=== PATIENT | male | born 1970 | race Caucasian/White ===

== ENCOUNTER 2019-01-21 10:47 | Outpatient (CLI) | payer BC, SELFPAY ==
--- NOTE | 2019-01-21 09:27 | DI.RAD_ITS ---
SYMPTOM/DIAGNOSIS: LT KNEE PAIN LEFT KNEE: Four views were obtained. There is a tiny calcific or ossific density adjacent to the lateral aspect of the patella. Minimal enthesophyte formation noted at the quadriceps attachment. No other bony or soft tissue abnormality is seen.
== END 2019-01-21 11:07 ==
PROVIDERS: PCP Family Medicine; Visit Provider Student in an Organized Health Care Education/Training Program
DX: M25.562 Pain in left knee (principal); M76.892 Other specified enthesopathies of left lower limb, excluding foot
CPT/HCPCS: 73564

== ENCOUNTER 2019-02-04 07:41 | Outpatient (CLI) | payer BC, SELFPAY ==
--- NOTE | 2019-02-04 15:39 | DI.MRI_ITS ---
EXAM: MR LOWER JOINT LT WO CLINICAL HISTORY: LT KNEE PAIN. TECHNIQUE: Multiplanar multisequence MRI was performed. COMPARISON: No exams were available for comparison FINDINGS: There is a small knee joint effusion. No significant bony signal abnormality seen. Articular cartil age appears intact as visualized. Extensor mechanism appears intact. No cruciate ligament tear seen . No significant collateral ligament injury seen. Lateral meniscus appears normal. Medial meniscus shows a complex nondisplaced tear of the body and posterior horn. IMPRESSION: Conclusion complex nondisplaced medial meniscal tear involving body and posterior horn. No additiona l significant findings
== END 2019-02-04 08:01 ==
PROVIDERS: PCP Family Medicine; Visit Provider Student in an Organized Health Care Education/Training Program
DX: M25.562 Pain in left knee (principal); M25.462 Effusion, left knee; S83.242A Other tear of medial meniscus, current injury, left knee, initial encounter
CPT/HCPCS: 73721

== ENCOUNTER 2019-04-13 09:55 | Day surgery (SDC) | payer BC, SELFPAY ==
[2019-04-13] VITALS (8 sets, daily range): BP systolic 98–133; BP diastolic 76–89; PULSE 64–79; RESP 11–18; TEMP 36–36.6; O2SAT 97–100
--- NOTE | 2019-04-13 09:44 | W.PREOPHP ---
Assessment and Plan Assessment and plan (1) Tear of medial meniscus of left knee: Status: Acute Assessment and plan: Plan: Educated patient on surgery covering surgical technique, recovery process, benefits and risks including but not limited to risk of infection, blood clot, damage to soft tissue/blood vessels/nerves in detail. After discussion patient gives verbal understanding of risks and elects to proceed with scheduling surgery. Patient had opportunity to have questions answered to their satisfaction. They will contact office if issues arise. Patient will continue to be scheduled for left knee arthroscopy with likely partial medial meniscectomy with Dr. Lemon. Qualifiers: Encounter type: subsequent encounter Meniscus tear of knee type: complex Tear current or old: current Qualified Code(s): S83.232D - Complex tear of medial meniscus, current injury, left knee, subsequent encounter History of Present Illness Narrative: Mr. Arzate is a 48-year-old male who presents for scheduled left knee arthroscopy with partial medial vasectomy by Dr. Lemon. Reports approximately 6-month history of left knee pain that initially developed on the lateral aspect but has since become more diffuse. Pain developed following a run but denies any specific trauma. Due to patient's discomfort he has had to give up activity including light running and jogging. Patient was previously been seen orthopedic clinic in January 2019 at which time he had an MRI ordered which as per Dr. Bridges's read on 02/04/2019 revealed a complex nondisplaced medial meniscal tear involving body and posterior horn. Due to patient's continued discomfort and MRI findings of meniscal tear he was offered surgical intervention and elected to proceed. Review of Systems Cardiovascular Cardiovascular: Denies chest pain, Denies chest pain at rest, Denies rapid heart rate, Denies irregular heart rhythm, Denies palpitations, Denies dyspnea, Reports dyspnea on exertion (reports a episode of DANIELLE when hiking a steep trail in [place];denies other DANIELLE) and Denies slow heart rate Respiratory Respiratory: Denies cough, Denies dyspnea, Reports dyspnea on exertion (reports a episode of DANIELLE when hiking a steep trail in [place];denies other DANIELLE) and Denies wheezing Endocrine Endocrine: Denies palpitations Allergic/Immunologic Allergic/Immunologic: Denies wheezing [facility] Medical History (Updated 04/13/19 @ 10:11 by Clarke Catalan) Hx of migraine with aura (Acute) Surgical History History of arthroscopic knee surgery (Chronic) 2010 (RIGHT KNEE) Social History Smoking/Tobacco Use Status: Never Alcohol Intake: current Alcohol Intake frequency: 0-2 drinks per day Drug use: Socially Substance use type: marijuana Details: ONCE EVERY 3-4 MONTHS Do you feel safe at home: Yes Do you feel safe in your relationship?: Yes Meds Home Medications and Allergies Home Medications Medication Instructions Recorded Confirmed Type caxqwsz-pzngqzninkzvn-lykexflz 1 tab 04/13/19 History [Excedrin Migraine] ibuprofen 400 mg PO PRN PRN 04/13/19 04/13/19 History Allergies Allergy/AdvReac Type Severity Reaction Status Date / Time No Known Drug Allergies Allergy Verified 04/13/19 10:21 Exam Const General: cooperative, healthy appearing and no acute distress Resp Effort & Inspection: normal respiratory effort and able to speak in complete sentences Auscultation: clear to auscultation bilaterally, no crackles, no rales and no rhonchi Cardio Heart Sounds: S1 normal, S2 normal and no murmurs
[2019-04-13] MEDS: Lactated Ringers 1,000 ML 80 ML IV (10:39)
[2019-04-13] MEDS: ceFAZolin 2 GM/50 ML BAG IVPB (11:02)
--- NOTE | 2019-04-13 11:07 | PDOC.DSDIS_ITS ---
Discharge Plan Disposition Patient Disposition: HOME Condition: Good Discharge Details Reason For Visit: Left knee medial meniscus tear Attending Provider: Michele Lemon Primary Care Provider: Getachew Ochoa I Home Meds and New Rx's Prescriptions: New acetaminophen 500 mg tablet 500 mg PO Q6H PRN (Reason: pain) Qty: 60 RF: 2 ibuprofen 600 mg tablet 600 mg PO TID PRN (Reason: pain) Qty: 60 RF: 2 oxycodone 5 mg tablet 5 mg PO Q6H PRN (Reason: severe post-operative pain) Qty: 8 RF: 0 Continued ibuprofen 400 mg Tablet 400 mg PO PRN PRNRF: 0 Excedrin Migraine 250-250-65 mg Tablet 1 tab RF: 0 Discharge Instructions Stand Alone Forms: [facility]ochilt Knee Arthroscopy Referrals: Michele Lemon MD [ [facility] STAFF PHYSICIAN] - Equipment/Supplies: Partial Weight Bearing Crutches Activity:: Activity as Tolerated Remove Dressings/Wound Care:: 72 hours Shower/Bathe:: 72 hours Discharge Orders Discharge Orders: Discharge Order (Routine); Ordered 04/13/19 Ordered By: Elvie Vega DS: Diagnosis Discharge Diagnosis (1) Tear of medial meniscus of left knee: Status: Acute
[2019-04-13] MEDS: Bupivacaine 0.5% Pres-Free 30 ML VIAL (11:30)
--- NOTE | 2019-04-13 16:49 | W.PM.OP ---
Date of service: 04/13/19 Time of Service: 12:50 Operative Note Operative Note DATE OF PROCEDURE: 04/13/19 PRE-OP DIAGNOSIS: Left medial meniscal tear POST-OP DIAGNOSIS: other (Left medial meniscal tear, left medial plica syndrome) PROCEDURE: Arthroscopic left knee partial medial meniscectomy, medial plica excision SURGEON: Michele Lemon ANESTHESIA: GETA ESTIMATED BLOOD LOSS: 0 PATHOLOGY: none sent COMPLICATIONS: None Patient was transported to: PACU Patient's condition: stable Indications: I have seen Pranav in clinic for symptoms of a meniscus tear. This was confirmed based on MRI and exam findings. Nonoperative measures were exhausted but disability and pain persisted. I discussed knee arthroscopy with meniscal intervention with the patient. I reviewed the risks of the procedure to include, but not limited to, bleeding, infection, pain, stiffness, damage to nerves or vessels, recurrence, blood clot. Despite these risks, the patient elected to proceed. Findings: A diagnostic arthroscopy was performed with the following findings: Suprapatellar Pouch: No significant inflammation, no loose bodies Medial Compartment: Complex medial meniscal tear primarily involving the posterior horn and body with no extension into the root, intact meniscal root, no significant chondromalacia or signs of arthritis, no loose bodies, taut medial plica Notch: ACL and PCL were intact with some inflammatory change Lateral Compartment: No meniscal tear, intact meniscal root, no significant chondromalacia or signs of arthritis, no loose bodies Patellofemoral Compartment: No significant chondromalacia, no apparent patellar maltracking Procedure Description: Pranav was greeted in the preoperative holding area where the correct side was identified and marked. The consent was reviewed with the patient and signed. The history and physical was updated. All questions were answered. Pranav was taken back to the operating room. The patient was placed into the supine position on the operating room table. A nonsterile tourniquet was placed high onto the leg but not used. All bony prominences were well padded. Prophylactic antibiotics in the form of cefazolin were administered. The left leg was then prepped with Chloraprep and draped in a standard fashion with stockinette and extremity drape. A timeout to confirm correct identity, side and site, procedure, allergies, anesthesia, and medical concerns was performed. The leg was placed into a pneumatic leg diaz, SPIDER2. A standard lateral portal was made at the lateral border of the patella tendon in line with the inferior pole of the patella, soft spot. The skin and deep tissue was incised sharply and the blunt trochar was inserted atraumatically. A diagnostic arthroscopy was performed and the findings are listed above. The suprapatellar pouch had no significant inflammatory change. The patellofemoral articulation showed no articular damage as well as good tracking. The lateral gutter had no loose bodies and the medial gutter had no loose bodies. There was a very notable medial plica which was very taut and articulated with the medial aspect of the distal femur. The knee was brought into some valgus stress in extension to open the medial compartment. A medial portal was made, localized by a spinal needle. The portal was created with an #11 blade through skin and capsule under direct visualization avoiding any meniscal injury. A probe was then inserted into the medial compartment. The medial compartment was fully inspected. The chondral surface of the tibia showed no significant chondromalacia and the surface of the femur showed no significant chondromalacia. The medial meniscus had a complex tear involving the posterior horn and body. There is both a radial and a horizontal component which did not go all the way into the periphery. After evaluation, the meniscus was debrided down to a stable base using a series of biters and arthroscopic javier. It was probed afterwards to confirm that the tear had been removed and the meniscus was stable. The notch was then inspected which showed an intact ACL and an intact PCL. The leg was then brought into a figure of 4 position. The lateral compartment was fully inspected with the arthroscope and a probe. The chondral surface of the lateral femur showed no significant chondromalacia. The chondral surface of the lateral tibia showed no significant chondromalacia. The lateral meniscus had no meniscal tear. The arthroscope was brought back into the suprapatellar pouch and the leg was in full extension. The medial plica was excised using the shaver until there was no notable pressure against the medial femur. The knee was thoroughly irrigated with the arthroscopic fluid on high flow and pressure. Inflow was stopped and excess fluid was removed. The wounds were closed with 4-0 Nylon. They were dressed with Xeroform, 4x4 gauze, ABD pad, Kerlix and an MYKE wrap. A cryo-cuff was applied. The patient tolerated the procedure well and was returned to the Same Day Surgery area in a stable condition suffering no known complication.
== END 2019-04-13 14:00 | disposition home or self-care (01) ==
PROVIDERS: PCP Family Medicine; Visit Provider Student in an Organized Health Care Education/Training Program
PROC: (CPT 29870; principal; 2019-04-13 11:45)
DX: S83.232A Complex tear of medial meniscus, current injury, left knee, initial encounter (principal); X50.9XXA Other and unspecified overexertion or strenuous movements or postures, initial encounter; M67.52 Plica syndrome, left knee
CPT/HCPCS: 29881; NC; J0690; J1100; J1885; J2250; J2405

== ENCOUNTER 2022-02-19 11:42 | Emergency (ER) | payer BC, SELFPAY ==
--- NOTE | 2022-02-19 11:45 | RT.EKG_ITS ---
APPROVED REPORT Exam: Resting ECG Reason for Exam: chest pain Patient Location: E HR:73 bpm ECG Measurements Heart Rate 73 AXIS SC 170 P 79 QRSd 98 QRS 73 QT 354 T 57 QTc 391 Conclusion Sinus rhythm...normal P axis, V-rate 60- 99
[2022-02-19 11:47] VITALS: BP 152/117; PULSE 67; RESP 18; TEMP 36.6; O2SAT 100
[2022-02-19 12:59] LABS: ALT 38 U/L (16-63); AST 21 U/L (15-37); Albumin 4.4 g/dL (3.4-5.0); Alkaline Phosphatase 77 U/L (46-116); Anion Gap 6.5 mmol/L (3-11); BUN 18 mg/dL (7-18); Bilirubin, Total 0.7 mg/dL (0.2-1.0); CO2 30.5 mmol/L (21.0-32.0); CREATININE 1.1 mg/dL (0.70-1.30); Chloride 104 mmol/L (98-107); Estimated GFR 81.78 (mL/min/1.73m2); Glucose 94 mg/dL (74-106); Lipase 140 U/L (73-393); Potassium 4.1 mmol/L (3.5-5.1); Sodium 141 mmol/L (136-145); Total Protein 7.9 g/dL (6.4-8.2); Troponin I < 50 ng/L (<or=60)
[2022-02-19 13:00] LABS: Abs Immature Grans 0.01 10^3/uL (0.0-0.06); Absolute Basophil Count 0.04 10^3/uL (0.0-0.2); Absolute Eosinophil Count 0.07 10^3/uL (0.0-0.7); Absolute Lymphocyte Count 1.61 10^3/uL (1.2-3.4); Absolute Monocyte Count 0.41 10^3/uL (0.1-0.8); Absolute Neutrophil Count 3.04 10^3/uL (1.2-6.7); Basophils % 0.8; Eosinophils % 1.4; HCT 47.1 % (40.0-50.0); HGB 15.4 g/dL (13.5-17.5); Immature Grans % 0.2; Lymphocytes % 31.1; MCHC 32.7 % (32.0-36.0); MCV 86 fL (80-95); MPV 10.2 fL (8.0-11.0); Monocytes % 7.9; Neutrophils % 58.6; Platelet Count 225 10^3/uL (130-400); RDW 12.5 % (11.8-14.1); RDW-SD 39.1 fL; WBC 5.18 10^3/uL (4.4-10.8)
--- NOTE | 2022-02-19 13:09 | ED.GENADUL_ITS ---
Discharge Plan Disposition Patient Disposition: AGAINST MEDICAL ADVICE Condition: Stable Discharge Details Clinical Impression: Chest pain Primary Care Provider: Getachew Ochoa I ED Provider: Idalmis Mdeel Home Meds and New Rx's Prescriptions: Continued ibuprofen 400 mg Tablet 400 mg PO PRN PRN Excedrin Migraine 250-250-65 mg Tablet 1 tab acetaminophen 500 mg tablet 500 mg PO Q6H PRN (Reason: pain) Qty: 60 2RF ibuprofen 600 mg tablet 600 mg PO TID PRN (Reason: pain) Qty: 60 2RF Discharge Instructions Instructions: Chest Pain (ED) Additional Instructions: Please follow-up with your primary care physician, you have declined any additional testing at this time including a repeat heart enzyme level and x-ray of your chest I do recommend stress test in the outpatient setting the discretion of your provider Limit any activities that reproduce your symptoms is much as possible Please return earlier should you have new, worsening, or persistent symptoms Referrals: Getachew Ochoa MD [Primary Care Provider] - Discharge Data Discharge Date/Time-TO BE ENTERED AT DEPARTURE: 02/19/22 13:49 Medical Decision Making Patient has a negative initial troponin, dimer, and EKG does not show acute abnormality She was made aware that we would like to repeat his troponin and EKG, he has declined, fully alert, oriented, of decisional capacity and will follow up closely with his primary care physician He has what appears to be lateral epicondylitis, he is encouraged to follow-up with his doctor regarding this as well and ibuprofen and rest this arm Patient is discharged home in stable condition with stable vital discussed possible outpatient stress test at the discretion of his doctor Medical Records Medical records reviewed: Yes I reviewed the patient's medical records. Lab Data Lab results reviewed: Yes I reviewed the patient's lab results. HPI General Date/Time Provider Initiated Documentation: 02/19/22 12:07 . HPI Narrative: This 51-year-old male presents with chest pain which awoke him from sleep at approximately 2 AM. He states he has been having some what he believes to be anxiety when he lays down to sleep after thinking about the day. He denies any associated shortness of breath. He has an intermittent lightheadedness. He denies any nausea, diaphoresis, sweating. He denies early family history of coronary artery disease. He denies tobacco use, hypertension, or hyperlipidemia. He denies exertional symptoms. He states he actually hikes every other day and feels well during this. He denies any calf pain or swelling, recent flights, surgeries, long drives, or history of coagulopathy. He also reports some left lateral arm pain and reported weakness secondary to pain. He has been playing baseball more frequently as of late. He states the pain is exacerbated with movement of his elbow. States this has been going on for the past several days. He denies any neck pain, abdominal pain, or lower extremity pain or swelling. Related Data Home Medications Medication Instructions Recorded Confirmed acetaminophen 500 mg tablet 500 mg PO Q6H PRN pain #60 tabs 04/13/19 02/19/22 einbauz-ggargenvluvms-iuveucre 250 1 tab 04/13/19 04/29/19 mg-250 mg-65 mg tablet (Excedrin Migraine) ibuprofen 400 mg tablet 400 mg PO PRN PRN 04/13/19 02/19/22 ibuprofen 600 mg tablet 600 mg PO TID PRN pain #60 tabs 04/13/19 02/19/22 Previous Rx's Medication Instructions Recorded acetaminophen 500 mg tablet 500 mg PO Q6H PRN pain #60 tabs 04/13/19 ibuprofen 600 mg tablet 600 mg PO TID PRN pain #60 tabs 04/13/19 Allergies Allergy/AdvReac Type Severity Reaction Status Date / Time No Known Drug Allergies Allergy Verified 02/19/22 11:54 General Stated Complaint: Chest Pain REGGIE: 3 Review of Systems All systems reviewed & are unremarkable except as noted in HPI and below PFSH All Active Problems (Updated 02/19/22 @ 13:47 by ANKUR Pineda) Chest pain (Acute) Injury of superior glenoid labrum of right shoulder (Acute 04/19/16) Internal derangement of left knee (Acute) Tear of medial meniscus of left knee (Acute) Medical History (Updated 02/19/22 @ 13:47 by ANKUR Pineda) Hx of migraine with aura Surgical History History of arthroscopic knee surgery 2010 (RIGHT KNEE) Social History Smoking/Tobacco Use Status: Never Smoking risk assessment performed?: Yes Alcohol Intake: current Alcohol Intake frequency: 0-2 drinks per day Drug use: Socially Substance use type: marijuana Details: ONCE EVERY 3-4 MONTHS Do you feel safe at home: Yes Do you feel safe in your relationship?: Yes Exam Const General: cooperative, comfortable and no acute distress Eyes Sclera: sclerae normal Resp Effort & Inspection: normal respiratory effort Auscultation: clear to auscultation bilaterally Cardio Rate: regular rate Rhythm: regular rhythm Heart Sounds: no murmurs GI Inspection: normal to inspection Skin General skin exam: no rashes or lesions noted Other: distal pulses intact Neuro General: patient alert and patient oriented x3 Extrem Other: no calf swelling or tenderness Course Vital Signs Vital signs: Vital Signs Temperature 36.6 C 02/19/22 11:47 Pulse 67 02/19/22 11:47 Respiratory Rate 18 02/19/22 11:47 Blood Pressure 152/117 H 02/19/22 11:47 Pulse Oximetry 100 02/19/22 11:47 Temperature 36.6 C 02/19/22 11:47 Temperature Source Temporal Artery Scan 02/19/22 11:47 Pulse 67 02/19/22 11:47 Respiratory Rate 18 02/19/22 11:47 Respiratory Effort Non-Labored 02/19/22 11:56 Blood Pressure 152/117 H 02/19/22 11:47 Blood Pressure Position Sitting 02/19/22 11:47 Pulse Oximetry 100 02/19/22 11:47 Oxygen Delivery Method Room Air 02/19/22 11:47 Oxygen Flow Rate 0 02/19/22 11:47 Lab/Test Results Lab/Test Results: Laboratory Tests Range/Units 02/19/22 02/19/22 12:29 12:29 WBC (4.4-10.8) 10^3/uL 5.18 RBC (4.36-5.78) 10^6/uL 5.50 Hgb (13.5-17.5) g/dL 15.4 Hct (40.0-50.0) % 47.1 MCV (80-95) fL 86 MCH (27.0-33.0) pg 28.0 MCHC (32.0-36.0) % 32.7 RDW (11.8-14.1) % 12.5 Plt Count (130-400) 10^3/uL 225 MPV (8.0-11.0) fL 10.2 Immature Gran % 0.2 Neutrophils % 58.6 Lymphocytes % 31.1 Monocytes % 7.9 Eosinophils % 1.4 Basophils % 0.8 Nucleated RBC % (0.0-0.3) % 0.0 Absolute Neutrophils (1.2-6.7) 10^3/uL 3.04 Absolute Lymphocytes (1.2-3.4) 10^3/uL 1.61 Absolute Monocytes (0.1-0.8) 10^3/uL 0.41 Absolute Eosinophils (0.0-0.7) 10^3/uL 0.07 Absolute Basophils (0.0-0.2) 10^3/uL 0.04 Sodium (136-145) mmol/L 141 Potassium (3.5-5.1) mmol/L 4.1 Chloride (98-107) mmol/L 104 Carbon Dioxide (21.0-32.0) mmol/L 30.5 Anion Gap (3-11) mmol/L 6.5 BUN (7-18) mg/dL 18 Creatinine (0.70-1.30) mg/dL 1.1 Est GFR (CKD-EPI 2020) (mL/min/1.73m2) 81.78 Glucose (74-106) mg/dL 94 Calcium (8.5-10.1) mg/dL 9.0 Total Bilirubin (0.2-1.0) mg/dL 0.7 AST (15-37) U/L 21 ALT (16-63) U/L 38 Alkaline Phosphatase (46-116) U/L 77 Troponin I (<or=60) ng/L < 50 Total Protein (6.4-8.2) g/dL 7.9 Albumin (3.4-5.0) g/dL 4.4 Lipase (73-393) U/L 140 PAWSS Have you Been Recently Intoxicated or Drunk Within the Last 30 days?: No Have you Ever Experienced Previous Episodes of Alcohol Withdrawal?: No Have you ever Experienced Withdrawal Seizures?: No Have you ever Experienced Delirium Tremens(DT)s?: No Have you ever undergone Alcohol Rehabilitation Treatment (i.e, inpt ot outpatient treatment programs)?: No Have you ever Experienced Blackouts?: No Have you ever Combined Alcohol with other Downers within the last 90 days?: No Have you ever Combined Alcohol with any other Substance of Abuse during the last 90 days?: No Positive Blood Alcohol level on Presentation? [PCS.BAL]: No Evidence of Increased Autonomic Activity (i.e. HR>120, tremor, sweating, agitation, nausea)?: No Result: 0
[2022-02-19 13:19] LABS: D-Dimer 233 ng/mlFEU (<500)
[2022-02-19 13:49] VITALS: RESP 18
== END 2022-02-19 13:49 | disposition left against medical advice (07) ==
PROVIDERS: Emergency Provider Physician Assistant; PCP Family Medicine
DX: R07.9 Chest pain, unspecified (principal); Z53.29 Procedure and treatment not carried out because of patient's decision for other reasons; Z79.82 Long term (current) use of aspirin
CPT/HCPCS: 36415; 80053; 83690; 93005; 99283; 84484; 85025; 85379; 93010

== ENCOUNTER 2022-10-25 00:37 | Outpatient (CLI) | payer BC, SELFPAY ==
--- NOTE | 2022-10-25 07:45 | DI.MRI_ITS ---
Exam(s) MR IAC BRAIN WO/W EXAM: MR IAC BRAIN WO/W CLINICAL HISTORY: right hearing loss SN,n90.5 TECHNIQUE: Multiplanar multisequence MRI of the brain was performed. Both noninfused and contrast i nfused sequences were performed. IV Contrast injected was 18 cc Dotarem. COMPARISON: No exams were available for comparison FINDINGS: CEREBRAL PARENCHYMA: No evidence of intracranial hemorrhage, mass effect nor shift of midline structu re. No extraaxial fluid collections. Ventricles are not enlarged nor shifted. There is no significant focal signal abnormality in the cerebellar hemispheres nor within the anita, m idbrain, and thalami. There is no abnormal signal abnormality in the periventricular white matter. DWI: No areas of restricted diffusion to suggest acute ischemic event. SWI: No microhemorrhages evident. There are no ring enhancing lesions in the brain. There is no abnormal meningeal enhancement. INTERNAL AUDITORY CANALS: No evidence of mass in the cerebellopontine angles and no evidence of intra canalicular acoustic neuroma. The 7th and 8th cranial nerves appear unremarkable within the interna l auditory canals bilaterally. PITUITARY GLAND: No mass nor parasellar abnormality. No obvious abnormality in the cavernous sinuses. FLOW VOIDS: The expected flow void are noted. No evidence of obvious aneurysm nor obvious vascular ma lformation. The skull base the left vertebral artery is dominant PARANASAL SINUSES: The visualized paranasal sinuses appear unremarkable. ORBITS: No obvious abnormal findings. IMPRESSION: 1. No significant intracranial findings on this MRI scan of the brain. 2. No abnormal enhancing intracranial findings. There are no ring enhancing lesions in the brain and there is no abnormal meningeal enhancement. 3. No evidence of acoustic neuroma-schwannoma nor other significant findings in the region of the in ternal auditory canals. DATA REPOSITORY:
[2022-10-25 12:28] LABS: CREATININE 1.2 mg/dL (0.70-1.30); Estimated GFR 73.22 (mL/min/1.73m2)
[2022-10-25] MEDS: Gadoterate meglumine 20 ML VIAL 17 ML IVP (12:37)
== END 2022-10-25 00:57 ==
LOC: DI 00:38
PROVIDERS: PCP Nurse Practitioner; Visit Provider Otolaryngology
DX: H90.5 Unspecified sensorineural hearing loss (principal)
CPT/HCPCS: 70553; 82565

== ENCOUNTER 2023-02-26 09:58 | Day surgery (SDC) | payer BC, SELFPAY ==
[2023-02-26 10:11] VITALS: BP 133/95; PULSE 83; RESP 20; TEMP 36.5; O2SAT 97
[2023-02-26] MEDS: Lactated Ringers 1,000 ML 80 ML IV (10:24)
--- NOTE | 2023-02-26 11:38 | W.ANESPRE ---
General Info Date of Service Date Performed: 02/26/23 Height: 5 ft 11 in Weight: 83 kg Body Mass Index (BMI): 25.4 Surgical Procedure: Operation Date: 02/26/23 11:20 Proposed Procedure Side Surgeon federico Howard MD Meds Allergies and Home Medications Allergies Allergy/AdvReac Type Severity Reaction Status Date / Time No Known Drug Allergies Allergy Verified 02/26/23 10:18 Home Medication Medication Instructions Recorded acetaminophen 500 mg tablet 500 mg PO Q6H PRN pain #60 tabs 04/13/19 slfkcue-pzqjcdhmbmarp-srghnfxl 250 1 tab PO DIRECTED 04/13/19 mg-250 mg-65 mg tablet (Excedrin Migraine) ibuprofen 400 mg tablet 400 mg PO PRN PRN 04/13/19 ibuprofen 600 mg tablet 600 mg PO TID PRN pain #60 tabs 04/13/19 sumatriptan succinate 100 mg tablet See Rx Instructions PO .COMPLEX 07/30/22 bisacodyl 5 mg tablet,delayed 5 mg PO ONCE #4 tabs 02/10/23 release (Dulcolax (bisacodyl)) polyethylene glycol 3350 17 17 g PO ONCE #238 grams 02/10/23 gram/dose oral powder Current Visit Medications: Current Medications Generic Name Dose Route Start Last Admin Trade Name Freq PRN Reason Stop Dose Admin Ringer's Solution 1,000 mls @ 80 mls/hr 02/26/23 06:00 02/26/23 10:24 IV 03/27/23 23:59 80 mls/hr INFUSION NOEL Administration IV Miscellaneous Supplies 1 each 02/26/23 06:00 Iv Access IV 03/27/23 23:59 DIRECTED NOEL Sodium Chloride 0 ml 02/26/23 06:00 Normal Saline Flush 10 Ml Syr IV 03/27/23 23:59 PRN PRN Sodium Chloride 0 ml 02/26/23 06:00 Normal Saline 10 Ml Vial IJ 03/27/23 23:59 DIRECTED PRN Sterile Water 0 ml 02/26/23 06:00 Water,Injection,Sterile 10 Ml Vial IJ 03/27/23 23:59 DIRECTED PRN PFSH Active Problems Active Problems: Problem Status Onset Code Right-sided sensorineural hearing loss H90.5 Hematochezia K92.1 Scrotal pain N50.82 Epididymitis N45.1 Elevated blood pressure reading without diagnosis of hypertension R03.0 Hearing loss in right ear H91.91 Cervical radiculopathy M54.12 Screening for colon cancer Z12.11 Injury of superior glenoid labrum of right shoulder 04/19/16 S43.431A Internal derangement of left knee M23.92 Tear of medial meniscus of left knee S83.242A Medical History Medical History Hx of migraine with aura Surgical History Surgical History S/p bilateral myringotomy with tube placement History of arthroscopic knee surgery 2010 (RIGHT KNEE) Tobacco Smoking/Tobacco Use Status: Never Alcohol Alcohol Intake: current Alcohol intake frequency: 0-2 drinks per day Substance Use Substance use: Socially Substance use type: marijuana Details: 2 weeks ago pt. had gummies Vital Signs and Lab Results Vital Signs Most Recent Vital Signs in EMR: Most Recent Vital Signs Temp Pulse Resp BP Pulse Ox 36.5 C 83 20 133/95 H 97 02/26/23 10:11 02/26/23 10:11 02/26/23 10:11 02/26/23 10:11 02/26/23 10:11 Lab Results Blood Type / Crossmatch: No Data to Display Complete Blood Count: No Data to Display Complete Metabolic Panel: No Data to Display Liver Function Panel: No Data to Display Coagulation Panel: No Data to Display Cardiac Panel: No Data to Display Arterial Blood Gas: No Data to Display Venous Blood Gas: No Data to Display Pancreas Panel: No Data to Display Thyroid Panel: No Data to Display Infectious Disease: No Data to Display Blood Cultures: No Data to Display Toxicology Panel: No Data to Display Imaging and Studies Imaging and Studies Study information below may be from another EMR and interpreted by another provider. Please see original notes in EMR for more complete details. EKG Summary: Conclusion Sinus rhythm...normal P axis, V-rate 60- 99 02/19/22 Anesthesia Assessment and Plan Anesthesia History Personal History: No History of Anesthesia Complications Family History: No Family History of Anesthesia Complications Exercise Tolerance Exercise Tolerance: Metabolic Equivalents>4 Pertinent Negatives Pertinent Negatives: No Symptoms of GERD, No Major Cardiovascular Symptoms or Complaints, No Major Pulmonary Symptoms or Complaints and No History of CVA/TIA Cardiac & Pulmonary Exam Cardiac Exam: Normal S1/S2 Heart Sounds Pulmonary Exam: Clear Bilateral Breath Sounds Implantable Cardiac Device Does patient have a Pacemaker or an ICD?: No Airway Exam Known Difficult Airway: No Mallampati Class: 3 Mouth Opening: Normal (> 3cm) Thyromental Distance: Greater than 3 cm Neck Range of Motion: Full ROM Neck Circumference: Normal Teeth Condition: Normal Dentition ASA Classification ASA Score: ASA 2 Emergency Case?: No NPO Status NPO Status: NPO Clears >2 hours, Solids >8 hours Anesthesia Plan Resuscitation Status: Full Code Anesthesia Technique: General Anesthesia Airway Planned: Natural Airway Monitors Used: Standard Monitors
[2023-02-26 11:50] VITALS: BMI 25.4
--- NOTE | 2023-02-26 12:07 | W.COLOREPORT ---
Date of service: 02/26/23 Time of Service: 12:08 Colonoscopy Report Procedure Description: Procedures performed: 1. Colonoscopy Preoperative diagnosis: Screening colonoscopy Postoperative diagnosis: Normal Surgeon: Johnathan Howard Anesthesia: Tyron Indication for procedure: Patient is a 52-year-old man with no symptoms and no prior colonoscopy. No family history of colon cancer but his son was recently diagnosed with ulcerative colitis. Findings: Normal terminal ileum. No polyps. No diverticular disease. No hemorrhoidal disease. No inflammation seen anywhere. Surveillance/follow-up recommendations: 10 years Complications: None Blood loss: Minimal Specimens:?? None Quality of Prep:?? Excellent. Procedure in detail: Written consent was obtained from the patient who was in agreement with the risks, benefits and indications of the procedure.? We went to the endoscopy suite and laid the patient in left lateral decubitus position.? Anesthesia was administered which was tolerated well.? A timeout was performed and when we are all in agreement we began the procedure. Digital rectal exam and visual examination was performed and within normal limits.? A well?lubricated colonoscope was advanced without difficulty all the way to the cecum identified by the ileocecal valve, and triangular folds and appendiceal orifice.? The terminal ileum was briefly intubated and look normal and the scope was then withdrawn.?? Retroflexion was performed in the rectum.? The findings/interventions are noted above. The scope was then removed and the patient tolerated the procedure well and was then taken back to the PACU in hemodynamically stable condition.
--- NOTE | 2023-02-26 12:08 | W.PM.DSUDISC ---
Date of service: 02/26/23 Time of Service: 12:08 Discharge Plan Disposition Patient Disposition: Home Condition: Good Discharge Details Attending Provider: Graham Howard Primary Care Provider: SUMEET JOHNSON [place] Meds and New Rx's Prescriptions: No Action bisacodyl [Dulcolax (bisacodyl)] 5 mg tablet,delayed release (DR/EC) 5 mg PO ONCE Qty: 4 0RF Rx Instructions: Take per colonoscopy instructions provided by ordering providers office polyethylene glycol 3350 17 gram/dose powder 17 g PO ONCE Qty: 238 0RF Rx Instructions: Take per colonoscopy instructions provided by ordering providers office sumatriptan succinate 100 mg tablet See Rx Instructions PO .COMPLEX Rx Instructions: take 1 tab at onset of headache; if no relief, may repeat 1 tab after at least 2 hrs; max = 2 tabs/24 hrs PO ibuprofen 400 mg Tablet 400 mg PO PRN PRN Excedrin Migraine 250-250-65 mg Tablet 1 tab PO DIRECTED acetaminophen 500 mg tablet 500 mg PO Q6H PRN (Reason: pain) Qty: 60 2RF ibuprofen 600 mg tablet 600 mg PO TID PRN (Reason: pain) Qty: 60 2RF Discharge Instructions Stand Alone Forms: Colonoscopy Post Instructions Activity:: Activity as Tolerated Diet:: As Tolerated DS: Diagnosis Discharge Diagnosis (1) Screening for colon cancer: Status: Acute Asessment and Plan: Everything looked perfect in your colon. There is no inflammation anywhere. No polyps. No diverticular disease. No hemorrhoidal disease. You should do another colonoscopy in 10 years.
[2023-02-26 12:38] VITALS: BP 127/97; PULSE 91; RESP 17; TEMP 36.4; O2SAT 96
--- NOTE | 2023-02-26 12:43 | W.ANESPOSTOP ---
Postoperative Evaluation Date, Time and Location Date Performed: 02/26/23 Time Performed: 12:44 Patient Location: Day Surgery Unit Vital Signs Most Recent Imported Vital Signs: Most Recent Vital Signs Temp Pulse Resp BP Pulse Ox 36.5 C 83 20 133/95 H 97 02/26/23 10:11 02/26/23 10:11 02/26/23 10:11 02/26/23 10:11 02/26/23 10:11 Pain Score Most Recent Pain Score: Most Recent Pain Score Pain Level 0 02/26/23 10:11 Assessment Mental Status: Awake (Alert & Oriented to Patient Baseline) Airway and Respiratory Function: Patent airway with normal (patient baseline) respiratory exam Cardiovascular Function: Hemodynamically Stable Hydration Status: Adequately Hydrated Nausea & Vomiting: No Nausea or Vomiting Pain: Pt. Denies Any Pain Peripheral Nerve Block: Patient did not receive a nerve block
[2023-02-26 13:05] VITALS: BP 121/102; PULSE 76; RESP 18; TEMP 36.6; O2SAT 97
[2023-02-26 13:24] VITALS: BP 128/78
== END 2023-02-26 13:22 | disposition home or self-care (01) ==
PROVIDERS: PCP Nurse Practitioner; Visit Provider Student in an Organized Health Care Education/Training Program
PROC: 0DJD8ZZ Inspection of Lower Intestinal Tract, Via Natural or Artificial Opening Endoscopic (ICD-10-PCS; CPT 45378; principal; 2023-02-26 11:15)
DX: Z12.11 Encounter for screening for malignant neoplasm of colon (principal)
CPT/HCPCS: 45378; 00123

== ENCOUNTER 2024-12-20 11:57 | Outpatient (CLI) | payer OTHER, SELFPAY ==
[2024-12-20 10:08] LABS: Abs Immature Grans 0.02 10^3/uL (0.0-0.06); HCT 43.7 % (40.0-50.0); HGB 14.0 g/dL (13.5-17.5); Immature Grans % 0.4 %; MCH 27.6 pg (27.0-33.0); MCHC 32.0 % (32.0-36.0); MCV 86 fL (80-95); MPV 9.6 fL (8.0-11.0); Platelet Count 198 10^3/uL (130-400); RBC 5.07 10^6/uL (4.36-5.78); RDW 12.8 % (11.8-14.1); RDW-SD 39.8 fL; WBC 5.20 10^3/uL (4.4-10.8)
[2024-12-20 13:45] LABS: ALT 58 U/L (16-63); AST 30 U/L (15-37); Albumin 4.0 g/dL (3.4-5.0); Alkaline Phosphatase 70 U/L (46-116); Anion Gap 5.2 mmol/L (3-11); BUN 20 mg/dL (7-18); Bilirubin, Total 0.7 mg/dL (0.2-1.0); CO2 30.8 mmol/L (21.0-32.0); Calcium 9.0 mg/dL (8.5-10.1); Calculated LDL 159 mg/dL (<100); Chloride 107 mmol/L (98-107); Cholesterol 242 mg/dL (<200); Estimated GFR 65.69 (mL/min/1.73m2); Glucose 91 mg/dL (74-106); HDL Cholesterol 54 mg/dL (>or=40); Potassium 4.7 mmol/L (3.5-5.1); Sodium 143 mmol/L (136-145); Total Protein 7.1 g/dL (6.4-8.2); Triglyceride 147 mg/dL (<150); Vitamin D 25 Total 23 ng/mL (30-100)
== END 2024-12-20 11:58 | disposition home or self-care (01) ==
LOC: LBO 12:07
PROVIDERS: PCP Nurse Practitioner; Visit Provider Nurse Practitioner Primary Care
DX: I10 Essential (primary) hypertension (principal)
CPT/HCPCS: 36415; 80053; 80061; 82306; 85025